=== PATIENT | male | born 2005 | race Caucasian/White ===

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

== ENCOUNTER 2023-03-20 16:48 | Emergency (ER) | payer BC, SELFPAY ==
[2023-03-20 16:55] VITALS: BP 132/66; PULSE 56; RESP 16; TEMP 36.6; O2SAT 99; BMI 23.7
--- NOTE | 2023-03-20 17:40 | ED.GENADULT ---
HPI - General Adult General Chief complaint: Laceration/Wound Stated complaint: punch to the face during soccer game Time Seen by Provider: 03/20/23 16:55 History of Present Illness HPI narrative: This is a very pleasant generally healthy 17-year-old male who presents to the ER today for a laceration to his right cheek. He is up-to-date on tetanus. No other medical conditions. No regular medications save for an acne cream. His injury occurred this afternoon a couple of hours prior to arrival. He was playing in a soccer game for [employer] in against [employer]. He was accidentally struck in the face by the goal keeper as he was trying to strike a header. He suffered a 1.25 cm linear laceration to his right cheek. No other injuries. He had on field medical care by the other teams operations trainer. They applied Steri-Strips and glue. Bleeding was controlled. He has no other injuries. No loss of consciousness. No facial pain. No injury to his nose. No trouble opening or closing his jaw. He does not think his facial bones are broken. He was encouraged to come to the doctor to get the wound checked Related Data Home Medications Medication Instructions Recorded Confirmed tretinoin 0.025 % topical cream applic topical QPM 03/20/23 Allergies Allergy/AdvReac Type Severity Reaction Status Date / Time No Known Drug Allergies Allergy Verified 04/17/22 15:15 [facility] Medical History No significant past medical history Surgical History No significant past surgical history Social History Smoking Status: Never smoker How often do you have a drink containing alcohol: never AUDIT-C Alcohol total score: 0 Non-prescribed substance use: denies use Exam Narrative: Exam Narrative: Constitutional: Appears well-developed and well-nourished. Alert. Conversant. Non toxic. HENT: Head: No depressed skull fracture, Racoon Eyes, Allison's sign, or hemotympanum. Face normal. TMs normal. Nose: Nose normal. Mouth/Throat: Oral mucosa is clear and moist. no trismus. Pharynx normal. Tonsils symmetric. No tonsillar enlargement, erythema, or exudate. There is a 1.25 cm curvilinear laceration affecting the patient's right cheek about 2 cm below the right lower eyelid. It is over the zygomatic arch. There is also a very superficial 0.5 cm superficial laceration running parallel to and just inferior to the primary laceration. Initially laceration is covered with Steri-Strips and Dermabond. We removed this for evaluation. The wound edges gaping about 1-2 mm. It penetrates through the epidermis into the dermis and barely into the underlying tissue. No foreign body. No active bleeding. No associated numbness or tingling in his face. No dental injury. No TMJ pain. Eyes: Conjunctivae normal. EOM normal. Pupils equal, round, and reactive to light. No scleral icterus. Neck: Normal range of motion. Neck supple. No tracheal deviation present. Cardiovascular: Normal rate, regular rhythm. No gallop. No friction rub. No murmur heard. Symmetric radial artery pulses Pulmonary/Chest: Effort normal. No stridor. No respiratory distress. No wheezes. No rales. No rhonchi . No tenderness. Musculoskeletal: RUE: Normal range of motion. No tenderness. No deformity LUE: Normal range of motion. No tenderness. No deformity RLE: Normal range of motion. No edema. No tenderness. No deformity LLE: Normal range of motion. No edema. No tenderness. No deformity Lymph: No cervical adenopathy. Neurological: Alert and oriented to person, place, and time. Normal strength. CN II-VII intact. No sensory deficit. GCS eye subscore is 4. GCS verbal subscore is 5. GCS motor subscore is 6. Normal coordination Skin: Skin is warm and dry. No rash noted. No pallor. Normal capillary refill. Psychiatric: Normal mood. Normal affect. Const: Vital Signs, click to edit/add: Vital Signs - 24 hr 03/20/23 16:55 Temperature 97.8 F Pulse Rate [Pulse Oximeter] 56 L Respiratory Rate 16 Blood Pressure [Ri ght Upper Arm] 132/66 Pulse Oximetry 99 Oxygen Delivery Me thod Room Air Course Vital Signs Vital signs: Initial Vital Signs Temperature 97.8 F 03/20/23 16:55 Temperature Source Temporal Artery Scan 03/20/23 16:55 Pulse Rate 56 L 03/20/23 16:55 Respiratory Rate 16 03/20/23 16:55 Blood Pressure 132/66 03/20/23 16:55 Blood Pressure Mean 88 03/20/23 16:55 Blood Pressure Position Supine 03/20/23 16:55 Pulse Oximetry 99 03/20/23 16:55 Oxygen Delivery Method Room Air 03/20/23 16:55 Vital Signs Temperature 97.8 F 03/20/23 16:55 Pulse Rate 56 L 03/20/23 16:55 Respiratory Rate 16 03/20/23 16:55 Blood Pressure 132/66 03/20/23 16:55 Pulse Oximetry 99 03/20/23 16:55 Oxygen Delivery Method Room Air 03/20/23 16:55 Temperature 97.8 F 03/20/23 16:55 Pulse Rate 56 L 03/20/23 16:55 Respiratory Rate 16 03/20/23 16:55 Blood Pressure 132/66 03/20/23 16:55 Pulse Oximetry 99 03/20/23 16:55 Oxygen Delivery Method Room Air 03/20/23 16:55 Medical Decision Making MDM Narrative Medical decision making narrative: Findings and exam are consistent with an uncomplicated laceration which was repaired as noted above. Discussed options for wound care including allowing the wound to heal with the Steri-Strips that are already in place for says removing them for primary closure. Discussed potential that scar would be less noticeable if we did stitches out. Patient preferred to go ahead with primary closure with sutures. There is no evidence at this time to suggest any associated fracture or foreign body. There is no evidence to suggest intracranial injury and patient is neurologically in tact. The patient is to follow up for suture removal as instructed in 5-7 days if they don't dissolve and fall out on their own. Indications to seek urgent reevaluation and signs of infection (including but not limited to increasing pain, redness, swelling, fevers, and drainage) were reviewed. Tetanus is up-to-date. This is a clean and noncontaminated wound in which prophylactic antibiotics are not indicated. An understanding of the discharge instructions and need for follow up were verbally confirmed. Discharge Plan Discharge Clinical Impression: Laceration Patient Disposition: Home, Self-Care Condition: Stable Instructions: Laceration (DC) Additional Instructions: As we discussed, please follow-up with your primary care doctor or urgent care in 5-7 days to have the stitches removed. After tomorrow, it is located take the dressing off and clean the wound gently 1 time per day. After the wound is clean, let it dry, reapply antibiotic ointment, and then apply a dressing. Avoid strenuous activity such as soccer practice for the next 5 days to allow the wound to heal. If you have any concern for infection, return to the ER or seizure doctor immediately. Prescriptions: No Action tretinoin 0.025 % cream topical QPM Follow Up/Referrals: Provider,Not a Local [Primary Care Provider] - Stand Alone Forms: [facility] Info Instructions Procedures Laceration Right cheek: Pre procedure diagnosis: Right cheek laceration Side (If applicable): right Size (cm): 1.25 Description: linear Depth: simple, single layer Local Anesthetic: lidocaine 1% Amount of anesthesia used (mL): 2 Pre-repair: wound explored Skin layer closed with: nylon Size (cm): 6-0 Number of sutures: 4 Technique: simple, interrupted
--- NOTE | 2023-03-20 17:48 | ED.NURSE ---
Lac repair and dressing by MD. Bleeding and pain controlled at time of triage.
[2023-03-20 17:49] VITALS: BP 132/66; PULSE 56; RESP 16; TEMP 36.6
--- OUTSIDE RECORDS SUMMARY | 2023-03-20 17:49 | XMS_ITS ---
Author Name Karri Delaney Address [address] [place] [address] Organization [facility] Address [address] [place] [address] Care Team Providers Care Pool Coordinator Name Role Phone Karri Delaney Unavailable [phone] PROBLEMS Unknown Problems ALLERGIES No Known Allergies ENCOUNTERS Encounter Location Date Diagnosis [facility] [address] [place] [address] Dec, Encounter for screening for COVID-19 Z11.52 IMMUNIZATIONS No Known Immunizations SOCIAL HISTORY Never Assessed REASON FOR REFERRAL FUNCTIONAL STATUS PLAN OF CARE VITAL SIGNS MEDICATIONS No Known Medications PROCEDURES Procedure Date Ordered Result Body Site Direct to Employer Exam January 10, 2021 Direct to Employer Covid Test January 10, 2021 RESULTS Name Result Date Reference Range COVID-19 Molecular Nucleic A jonn Amplification Test (NAAT) 2021-01-10 COVID-19 NEGATIVE REASON FOR VISIT DTE: [facility] COVID-19, no symptom no exposure Insurance Providers Health Insurance Type Health Plan Insurance Address Health Plan Insurance Phone Health Plan Insurance Name Health Plan Coverage Dates Member ID Patient Relationship to Subscriber Patient Address Patient Phone Patient Name Patient Date of Subscriber ID Subscriber Name Subscriber Date of Group No [employer] [place] [employer] [address] [facility] [id number] [employer] [place] [employer] self JOHN APARICIO [id number]
== END 2023-03-20 17:49 | disposition home or self-care (01) ==
LOC: ED 17:47
PROVIDERS: Emergency Provider Emergency Medicine
DX: S01.411A Laceration without foreign body of right cheek and temporomandibular area, initial encounter (principal); X58.XXXA Exposure to other specified factors, initial encounter; Y93.66 Activity, soccer
CPT/HCPCS: 12011; 99283; 99284

== ENCOUNTER 2023-03-26 15:42 | Emergency (ER) | payer BC, SELFPAY ==
[2023-03-26 15:45] VITALS: BP 132/73; PULSE 57; RESP 16; TEMP 36.8; O2SAT 98; BMI 23.7
--- NOTE | 2023-03-26 16:56 | ED.SKABFB ---
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 He had the sutures placed on March 20. He has not had any concerns of any infection symptoms. Related Data Home Medications Medication Instructions Recorded Confirmed tretinoin 0.025 % topical cream applic topical QPM 03/20/23 Allergies Allergy/AdvReac Type Severity Reaction Status Date / Time No Known Drug Allergies Allergy Verified 03/26/23 15:47 Review of Systems Narrative[facility] History No significant past medical history Surgical History No significant past surgical history Social History Smoking Status: Never smoker How often do you have a drink containing alcohol: never AUDIT-C Alcohol total score: 0 Non-prescribed substance use: denies use Exam Const: Vital Signs, click to edit/add: Vital Signs - 24 hr 03/26/23 15:45 Temperature 98.2 F Pulse Rate [Left P ulse Oximeter] 57 L Respiratory Rate 16 Blood Pressure [Ri ght Upper Arm] 132/73 Pulse Oximetry 98 Oxygen Delivery Me thod Room Air Very pleasant 17-year-old male ambulatory to the ED of his own accord. He has a wound on his face with 4 simple interrupted sutures in. These are starting to in bed. There is a little pinkish change around the wound signifying wound healing but not erythema as in infection. There is no drainage. Wound edges looked nicely approximated. Four simple interrupted sutures were removed, patient tolerated procedure well. There was no opening of the wound. The superficial structures are well adherent together. Documenting provider has reviewed patient's vital signs: yes Course Vital Signs Vital signs: Initial Vital Signs Temperature 98.2 F 03/26/23 15:45 Temperature Source Temporal Artery Scan 03/26/23 15:45 Pulse Rate 57 L 03/26/23 15:45 Respiratory Rate 16 03/26/23 15:45 Blood Pressure 132/73 03/26/23 15:45 Blood Pressure Mean 92 03/26/23 15:45 Pulse Oximetry 98 03/26/23 15:45 Oxygen Delivery Method Room Air 03/26/23 15:45 Vital Signs Temperature 98.2 F 03/26/23 15:45 Pulse Rate 57 L 03/26/23 15:45 Respiratory Rate 16 03/26/23 15:45 Blood Pressure 132/73 03/26/23 15:45 Pulse Oximetry 98 03/26/23 15:45 Oxygen Delivery Method Room Air 03/26/23 15:45 Temperature 98.2 F 03/26/23 15:45 Pulse Rate 57 L 03/26/23 15:45 Respiratory Rate 16 03/26/23 15:45 Blood Pressure 132/73 03/26/23 15:45 Pulse Oximetry 98 03/26/23 15:45 Oxygen Delivery Method Room Air 03/26/23 15:45 Discharge Plan Discharge Clinical Impression: Encounter for removal of sutures Patient Disposition: Home, Self-Care Condition: Stable Instructions: Stitches Removal (ED) Additional Instructions: To protect her scar, do recommend using sunscreen any time you are exposed to the elements were you could get a sunburn. Sunburn to your scar can increase the risk of the scarring process. You can try some vitamin E oil on the wound, gently rub a small drop in twice a day. You still want to protect to this wound probably for few more weeks. If you took another significant direct impact right over this area, could cause it potentially open up. It would take significant impact to have this happen. It can take some times about 6-12 months for the scar to mature. If you are noticing a scar there that is problematic for you, can follow up with Dermatology or perhaps a plastic surgeon if the scar is bothersome to you. Activity Level: Activity as Tolerated Prescriptions: No Action tretinoin 0.025 % cream topical QPM Follow Up/Referrals: Provider,Not a Local [Primary Care Provider] - Stand Alone Forms: [employer] Info Instructions
--- OUTSIDE RECORDS SUMMARY | 2023-03-26 17:27 | XMS_ITS ---
Author Name Karri Delaney Address [address] [place] [address] Organization [facility] Address [address] [place] [address] Care Team Providers Care Waist Presser Name Role Phone Karri Delaney Unavailable [phone] PROBLEMS Unknown Problems ALLERGIES No Known Allergies ENCOUNTERS Encounter Location Date Diagnosis [facility] [address] [place] [address] Dec, Encounter for screening for COVID-19 Z11.52 [...] 2021-01-10 COVID-19 NEGATIVE REASON FOR VISIT DTE: [facility] COVID-19, no symptom no exposure Insurance Providers Health Insurance Type Health Plan Insurance Address Health Plan Insurance Phone Health Plan Insurance Name Health Plan Coverage Dates Member ID Patient Relationship to Subscriber Patient Address Patient Phone Patient Name Patient Date of Subscriber ID Subscriber Name Subscriber Date of Group No [employer] [address] [facility] [id number] [employer] self JOHN APARICIO [id number]
[2023-03-26 17:29] VITALS: BP 119/68; PULSE 56; RESP 16; O2SAT 100
== END 2023-03-26 17:30 | disposition home or self-care (01) ==
LOC: ED 17:25
PROVIDERS: Emergency Provider Family Medicine
DX: Z48.02 Encounter for removal of sutures (principal)
CPT/HCPCS: 99281; 99282